=== PATIENT | female | born 1945 | race Caucasian/White ===

== ENCOUNTER 2021-08-17 12:57 | Emergency (ER) | payer MEDICARE ==
[~2021-08-17] VITALS: Ht 170.2 cm; Wt 76.8 kg
--- NOTE | 2021-08-17 13:32 | PHYS DOC ---
Adult General Chief Complaint Chief Complaint: SORE THROAT HPI HPI Patient is a 76-year-old female with presenting for multiple complaints. First, she complains of dysphagia. Feels like since yesterday without any known ingestion, trauma or other known mechanism of injury having difficulty swallowing. She points to the base of the throat near her sternum and states that it feels like things are getting caught when she tries to swallow. No obvious aspiration, no history of any esophageal abnormalities, she has never had an upper endoscopy in the past. She has still been able to tolerate p.o. intake but reports she has been scared to do so since onset. She also reports of development of diarrhea that started approximately 72 hours ago. She has only had a couple episodes, less than 5. They have not been explosive in nature, nonbloody but patient does admit she is concerned as they have been looser than usual. She admits she is unable vaccinated against COVID-19, she stays home and has majority of her health cared for by daughter and home health nurse. While she is here she is wanting her right ankle to be evaluated. She has chronic swelling to this without any obvious mechanism of injury, trauma or other exposure. This issue was raised to her home health nurse several weeks ago but it was determined at that time to be nonemergent and close outpatient follow-up with primary care provider was advised. Review of Systems Review of Systems Fourteen body systems of review of systems have been reviewed. See HPI for pertinent positives and negative responses, other tapia all other systems are negative, non-pertinent or non-contributory Allergies Allergies Allergies Coded Allergies Type Severity Reaction Last Updated Verified No Known Drug Allergies 08/17/21 No Physical Exam Physical Exam Constitutional: Well developed, well nourished, no acute distress, non-toxic appearance. HENT: Normocephalic, atraumatic, bilateral external ears normal, oropharynx moist, no oral exudates, nose normal. Eyes: PERRLA, EOMI, conjunctiva normal, no discharge. Neck: Normal range of motion, no tenderness, supple, no stridor. Cardiovascular: Heart rate regular, sinus rhythm, no murmurs rubs or gallops Lungs & Thorax: Bilateral breath sounds clear to auscultation Abdomen: Bowel sounds normal, soft, no tenderness, no masses, no pulsatile masses. Nonsurgical abdomen, no peritoneal signs Skin: Warm, dry, no erythema, no rash. Back: No tenderness, no CVA tenderness. Extremities: No tenderness, no cyanosis, no clubbing, ROM intact, no edema. Neurologic: Alert and oriented X 3, grossly normal motor & sensory function, no focal deficits noted. Psychologic: Affect normal, judgement normal, mood normal. Current Patient Data Vital Signs Vital Signs Date Time Temp Pulse Resp B/P (MAP) Pulse Ox O2 Delivery O2 Flow Rate FiO2 08/17/21 13:28 97.8 70 18 196/98 (130) 92 Room Air Vital Signs Date Time Temp Pulse Resp B/P (MAP) Pulse Ox O2 Delivery O2 Flow Rate FiO2 08/17/21 14:19 77 197/83 08/17/21 14:14 18 93 Room Air 08/17/21 13:28 97.8 EKG EKG EKG ordered and interpreted by myself at 1425 hrs. as sinus rhythm at 80 bpm, unremarkable intervals, no axis deviation, nonspecific ST wave abnormality in leads V3 through V6, no STEMI, no prior EKG to compare to Radiology/Procedures Radiology/Procedures AP chest, 2 views soft tissue neck HISTORY: Dysphasia AP view was taken of the chest. Lungs are free of infiltrates. Heart is normal in size. There are old left rib fractures. There is arthritis in both shoulders. There is no pleural effusion. 2 views soft tissue neck AP and lateral soft tissue views were taken of the neck. Epiglottis is not enlarged. There is no retropharyngeal soft tissue swelling. There is degenerative disc disease throughout the cervical spine. A soft tissue mass is not definitely identified. IMPRESSION: 1. No acute infiltrates. 2. Degenerative changes and scoliosis in the cervical spine. 2. Epiglottis unremarkable. 3. No abnormal soft tissue swelling or mass noted in the pharynx. Electronically signed by: Marc De Leon MD (08/17/2021 2:12 PM) [facility] Heart Score C/O Chest Pain: No HEART Score for Chest Pain: HEART Score for Chest Pain Response (Comments) Value History Slighlty/Non-Suspicious 0 ECG Nonspecific Repolarizatio 1 Age > 65 2 Risk Factors >3 Risk Factors or Hx CAD 2 Troponin < Normal Limit 0 Total 5 Risk Factors: Risk Factors: DM, Current or recent (<one month) smoker, HTN, HLP, family history of CAD, obesity. Risk Scores: Risk Factors: DM, Current or recent (<one month) smoker, HTN, HLP, family history of CAD, obesity. Course & Med Decision Making Course & Med Decision Making Airway patent, breathing unlabored, IV access and vitals obtained concerning for hypertension only History and physical exam grossly unremarkable. EKG with nonspecific ST wave abnormalities in anterolateral leads, patient has no chest pain. Radiographs unremarkable for any obvious foreign body Nitro administered with improvement in lower esophageal dysphagia. Bedside swallow screen performed by RN and unremarkable, patient reports symptoms resolved and no longer has ongoing foreign body sensation in throat I discussed case with patient and daughter at bedside, I disclosed this is complex given her past history of CVA with questionable dysphagia in the past. Overall feeling of foreign body resolved and patient feels at baseline. Okay for PCP follow-up and further eval by GI Patient was tested for COVID-19 today given that she is unvaccinated, has no obvious sick contacts but several individuals such as home health nurses coming into her home and recent development of diarrhea. Appropriate quarantine precautions and supportive care instructions advised Right ankle examination grossly unremarkable. No further need for further diagnostic work-up in ER setting. Outpatient PCP follow-up advised Strict return precautions were discussed at length with patient and daughter at bedside. All questions and concerns addressed prior to departure Dragon Disclaimer Dragon Disclaimer This electronic medical record was generated, in whole or in part, using a voice recognition dictation system. Departure Departure: Impression: Primary Impression: Dysphagia Additional Impressions: History of CVA (cerebrovascular accident) Hypertension Person under investigation for COVID-19 Diarrhea Disposition: HOME / SELF CARE / HOMELESS Condition: IMPROVED Referrals: JACKIE MENDOZA MD (PCP) Additional Instructions: As discussed prior to departure, your vitals were concerning for hypertension. Your physical exam and comprehensive ER work-up was nonconcerning for any emergent or surgical issues Your high blood pressure was likely due to not taking all of your daily blood pressure medications due to presenting symptoms. This improved with administered nitroglycerin and you should continue to take your home hypertensives with blood pressure log and primary care review Your feelings of foreign body and inability to swallow are concerning but did improve after nitroglycerin. Your airway was patent. Further work-up and investigation is needed, as disclosed you might be referred to a GI physician for further diagnostic work-up He also endorsed symptoms of diarrhea. Given presenting complaints in fact that you are unvaccinated you were tested for COVID-19. These results will come back within the next 24 hours and be communicated to you. In the meantime it is pertinent to provide supportive care to self and quarantine at home If any concerning signs or symptoms present prior to outpatient follow-up please do not hesitate to come back for repeat evaluation. It was a pleasure to take care of you and I wish you the best going forward Problem Qualifiers JOSEPH SINGLETARY DO Aug 17, 2021 13:32
[2021-08-17] MEDS ORDERED: NITROGLYCERIN SUBLINGUAL 0.4 MG BOTTLE OF 25. SL PRN (14:00)
--- NOTE | 2021-08-17 14:14 | RAD ---
AP chest, 2 views soft tissue neck HISTORY: Dysphasia AP view was taken of the chest. Lungs are free of infiltrates. Heart is normal in size. There are old left rib fractures. There is arthritis in both shoulders. There is no pleural effusion. 2 views soft tissue neck AP and lateral soft tissue views were taken of the neck. Epiglottis is not enlarged. There is no retr opharyngeal soft tissue swelling. There is degenerative disc disease throughout the cervical spine. A soft tissue mass is not definitely identified. IMPRESSION: 1. No acute infiltrates. 2. Degenerative changes and scoliosis in the cervical spine. 2. Epiglottis unremarkable. 3. No abnormal soft tissue swelling or mass noted in the pharynx. Electronically signed by: Marc De Leon MD (08/17/2021 2:12 PM) [facility]
[2021-08-17 15:10] VITALS: BP 187/86
--- NOTE | 2021-08-17 15:34 | EKG ---
[address] [address] Test Date: 2021-08-17 Test Time: 14:21:41 Pat Name: RANDA LEE Department: Room: Gender: F Registration Clerk: FERNANDA : 1945 Requested By: JOSEPH SINGLETARY Order Number: [id number] Reading MD: Brandin Andrade Measurements Intervals [place] Rate: 80 P: 90 [place]: 130 QRS: 36 QRSD: 72 T: 93 QT: 326 QTc: 379 Interpretive Statements SINUS RHYTHM ST & T ABNORMALITY, CONSIDER ANTERIOR ISCHEMIA OR LEFT VENTRICULAR STRAIN Electronically Signed On 08-18-2021 16:02:01 CDT by Brandin Andrade
== END 2021-08-17 15:10 | disposition home or self-care (01) ==
LOC: ER 12:57
DX: R13.10 Dysphagia, unspecified (principal); I10 Essential (primary) hypertension; R19.7 Diarrhea, unspecified; Z20.822 Contact with and (suspected) exposure to COVID-19; Z86.73 Personal history of transient ischemic attack (TIA), and cerebral infarction without residual deficits
CPT/HCPCS: 70360; 71045; 93005; 99285; C9803; U0003

== ENCOUNTER → 2021-09-08 | Outpatient (CLI) | payer MEDICARE ==
[2021-08-17 15:10] VITALS: BP 187/86
--- NOTE | 2021-09-08 17:08 | RAD ---
EXAM: XR RT TIBIA+FIBULA 09/08/2021 12:18 PM CLINICAL INDICATION: Pain in right foot COMPARISON: None TECHNIQUE: AP and lateral view of the right tibia and fibula FINDINGS: The bones are diffusely demineralized. There is no acute fracture. Alignment is normal. Th ere is no focal soft tissue abnormality. Vascular calcifications are noted. IMPRESSION: No acute osseous abnormality of the right tibia and fibula. Osteopenia. Electronically signed by: Marine Flores MD (09/08/2021 5:06 PM) [id number]
== END ==
LOC: RAD 12:00
PROVIDERS: ATTEND Specialist
DX: M85.88 Other specified disorders of bone density and structure, other site (principal); M25.871 Other specified joint disorders, right ankle and foot
CPT/HCPCS: 73590